=== PATIENT | female | born 1955 | race Caucasian/White ===

== ENCOUNTER → 2019-05-08 | Emergency (ER) | payer BC ==
[~2019-05-08] VITALS: Ht 170.2 cm; Wt 105.2 kg
[~2019-05-08] MED LIST: NOVOLOG100 UNIT/1 SQ
== END | disposition home or self-care (01) ==
LOC: ER 10:45
DX: S70.02XA Contusion of left hip, initial encounter (principal); S70.01XA Contusion of right hip, initial encounter; S70.12XA Contusion of left thigh, initial encounter; S70.11XA Contusion of right thigh, initial encounter; W18.39XA Other fall on same level, initial encounter; Y93.89 Activity, other specified; Y92.89 Other specified places as the place of occurrence of the external cause; Y99.8 Other external cause status